=== PATIENT | male | born 1980 | race Caucasian/White ===

== ENCOUNTER 2017-02-24 15:01 | Emergency (ER) | payer OTHER ==
[2017-02-24 15:24] VITALS: BP 129/79; PULSE 101; TEMP 98.2; BMI 32.6
--- NOTE | 2017-02-24 16:32 | PDOC ---
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 Have need to guard the room while outside contractors are present. During this time of construction ranging from 6-3 months patient uses no or eye protection. Cleaning company today arrived who stated debris appeared to be consistent with an aspestos. Was not confirmed by laboratory analysis. Patient denies any respiratory complaints, denies any skin changes, denies any eye burning or any runny nose. Is asymptomatic and here for documentation of potential exposure Timing: other Exposed Location: Bilateral: Eye(s), Other exposed area(s) (respiratory) Past History - Travel Traveled outside of the country in the last 30 days: No Close contact w/someone who was outside of country & ill: No - Past Medical History Allergies/Adverse Reactions: Allergies No Known Allergies Allergy (Verified 02/24/17 15:25) Home Medications: Ambulatory Orders NK [No Known Home Medication] 02/24/17 General: Yes: no pertinent history Surgical History: Yes: No Surgical History, Appendectomy - Family History Significant Family History: Yes: no pertinent family hx - Immunization History Immunizations Up to Date: No Tetanus Status: More than 5 years - Social History Smoking History: No Smoking Status: Never smoked Number of Ciarettes Per Day: 0 Cigars Per Day: 0 Alcohol Use: occasionally Drug Use: none General Medical PMHX - Other General PMHX Arthritis: No Review of Systems - Review of Systems Able to Perform ROS?: Yes Is the patient limited [place] proficient: Yes Constitutional: Yes: Symptoms Reported, See HPI. No: Fever, Malaise HEENTM: Yes: See HPI. No: Symptoms Reported, Eye Pain, Blurred Vision Respiratory: Yes: See HPI. No: Symptoms reported, Cough, Shortness of Breath, Wheezing Musculoskeletal: No: Symptoms Reported All Other Systems: Reviewed and Negative *Physical Exam - Vital Signs Last Vital Signs Temp Pulse Resp BP Pulse Ox 98.2 F 101 H 17 129/79 98 02/24/17 15:22 02/24/17 15:22 02/24/17 15:22 02/24/17 15:22 02/24/17 15:22 - Physical Exam General Appearance: Yes: Appropriately Dressed, Apparent Distress HEENT: positive: CYNDIE, Normal ENT Inspection, Normal Voice, TMs Normal, Pharynx Normal Neck: positive: Supple. 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 No testing completed currently. Will refer to occupational health for further follow-up as needed. Currently asymptomatic *DC/Admit/Observation/Transfer Diagnosis at time of Disposition: Suspected exposure to asbestos - Discharge Dispostion Disposition: HOME Condition at time of disposition: Stable Admit: No - Referrals Referrals: Bob Holm MD [Primary Care Provider] - - Patient Instructions Additional Instructions: Rest Drink lots fluids. See Occupational Health for followup - Post Discharge Activity Work/School Note: Back to Work
== END 2017-02-24 16:59 | disposition home or self-care (01) ==
LOC: JERFT 15:01 → SUPCPDRO 15:01 → JERFT 16:59
DX: Z77.090 Contact with and (suspected) exposure to asbestos (principal); X58.XXXA Exposure to other specified factors, initial encounter; Y93.89 Activity, other specified; Y92.61 Building [any] under construction as the place of occurrence of the external cause; Y99.0 Civilian activity done for income or pay
CPT/HCPCS: 99281-25

== ENCOUNTER 2021-01-01 04:42 | Day surgery (SDC) | payer OTHER ==
[2020-12-30 18:03] VITALS: BMI 32.6
[2021-01-01] MEDS ORDERED: ROPIVACAINE HCL 0.5% 30ML VIAL ONE (08:33)
[2021-01-01] MEDS ORDERED: MIDAZOLAM HCL 2 MG/2 ML SINGLE DOSE VIAL ONE ×2 (08:34)
[2021-01-01] MEDS ORDERED: PROPOFOL 20 ML ONE ×2 (09:14)
[2021-01-01] MEDS ORDERED: ceFAZolin SODIUM 1 GM VIAL IVPB ONE (09:29)
[2021-01-01] MEDS ORDERED: ONDANSETRON 4 MG/2 ML VIAL IVPUSH PRN (09:40)
[2021-01-01] MEDS ORDERED: oxyCODONE HCL 5 MG TABLET PO PRN (09:40)
[2021-01-01] MEDS ORDERED: DEXAMETHASONE SOD PHOSPHATE 4 MG/1 ML VIAL ONE (09:41)
[2021-01-01] MEDS ORDERED: ceFAZolin SODIUM 1 GM VIAL ONE (09:41)
[2021-01-01] MEDS ORDERED: KETOROLAC TROMETHAMINE 30 MG/1 ML VIAL ONE (09:41)
[2021-01-01] MEDS ORDERED: LACTATED RINGERS SOLUTION 1,000 ML IV SCH (09:45)
[2021-01-01 16:09] VITALS: BP 120/70; PULSE 84; TEMP 98.6
== END 2021-01-01 14:10 | disposition home or self-care (01) ==
LOC: JASU-SURG 04:42
PROVIDERS: ATTEND Orthopaedic Surgery
PROC: 0RCJ4ZZ Extirpation of Matter from Right Shoulder Joint, Percutaneous Endoscopic Approach (ICD-10-PCS; 2021-01-01)
PROC: 0RQJ4ZZ Repair Right Shoulder Joint, Percutaneous Endoscopic Approach (ICD-10-PCS; principal; 2021-01-01 09:30)
DX: S43.431A Superior glenoid labrum lesion of right shoulder, initial encounter (principal); X58.XXXA Exposure to other specified factors, initial encounter; Y93.9 Activity, unspecified; Y92.89 Other specified places as the place of occurrence of the external cause; Y99.9 Unspecified external cause status
CPT/HCPCS: 93005; 93010; 94760

== ENCOUNTER 2021-02-17 04:27 | Day surgery (SDC) | payer BC, OTHER ==
[2021-02-14 13:35] VITALS: BMI 32.6
[~2021-02-17 04:27] MED LIST: BUPIVACAINE HCL/PF 0.5% (5MG/ML) 10 ML VIAL IJ ONE; LIDOCAINE HCL 1%, 10 MG/ML (20ML VIAL) NR ONE
[2021-02-17] MEDS ORDERED: LIDOCAINE HCL 1%, 10 MG/ML (20ML VIAL) ONE ×2 (07:15→07:48)
[2021-02-17] MEDS ORDERED: LIDOCAINE HCL/PF 2% SDV 5ML VIAL ONE (07:46)
[2021-02-17] MEDS ORDERED: DEXAMETHASONE SOD PHOSPHATE 4 MG/1 ML VIAL ONE (07:46)
[2021-02-17] MEDS ORDERED: ONDANSETRON 4 MG/2 ML VIAL ONE (07:46)
[2021-02-17] MEDS ORDERED: ceFAZolin SODIUM 1 GM VIAL ONE ×2 (07:46→08:32)
[2021-02-17] MEDS ORDERED: SUCCINYLCHOLINE CHLORIDE 200 MG/10 ML SYRINGE ONE (07:48)
[2021-02-17] MEDS ORDERED: PROPOFOL 20 ML ONE ×4 (07:48→08:33)
[2021-02-17] MEDS ORDERED: MIDAZOLAM HCL 2 MG/2 ML SINGLE DOSE VIAL ONE (07:48)
[2021-02-17] MEDS ORDERED: ceFAZolin SODIUM 1 GM VIAL IVPB ONE (08:15)
[2021-02-17] MEDS ORDERED: LIDOCAINE HCL 1%, 10 MG/ML (20ML VIAL) NR ONE (08:27)
[2021-02-17] MEDS ORDERED: BUPIVACAINE HCL/PF 0.5% (5MG/ML) 10 ML VIAL IJ ONE (08:27)
[2021-02-17] MEDS ORDERED: KETOROLAC TROMETHAMINE 30 MG/1 ML VIAL ONE (08:32)
[2021-02-17 09:19] VITALS: TEMP 97.8
[2021-02-17] MEDS ORDERED: oxyCODONE HCL 5 MG TABLET PO PRN (09:19)
[2021-02-17] MEDS ORDERED: ONDANSETRON 4 MG/2 ML VIAL IVPUSH PRN (09:19)
[2021-02-17] MEDS ORDERED: LACTATED RINGERS SOLUTION 1,000 ML IV SCH (09:30)
[2021-02-17 10:54] VITALS: BP 118/73; PULSE 80
== END 2021-02-17 11:30 | disposition home or self-care (01) ==
LOC: JASU-SURG 04:27
PROVIDERS: ATTEND Orthopaedic Surgery
PROC: 01N50ZZ Release Median Nerve, Open Approach (ICD-10-PCS; principal; 2021-02-17 08:00)
DX: G56.01 Carpal tunnel syndrome, right upper limb (principal); M65.88 Other synovitis and tenosynovitis, other site
CPT/HCPCS: 88304-TC